=== PATIENT | female | born 1950 | race Caucasian/White ===

== ENCOUNTER → 2017-12-29 | Outpatient (CLI) | payer MEDICARE, OTHER ==
[~2017-12-29] MED LIST: ACYCLOVIR 400400 MG PO; ALLEGRA ALLERG180 MG; ASPIR 8181 MG; ATENOLOL 25 MG25 M1; CALICUM 500+D1 EACH PO; CLARITIN10 MG; COUMADIN 5 MG TA5 M1 PO; EVISTA; HYDROCHLOROTHIA25 M2; LIDOPRIL 2.5%-1 EACH; LISINOPRIL10 MG; MUCINEX TA600 MG/TA2; OXYCODONE HCL 55 MG; PATANOL5 ML; PREDNISONE 20 M20 M1 PO; SINGULAIR 10 MG10 M1; TENORMIN25 MG PO; TESSALON PERLE100 MG; VIACTIV SOFT C1 EACH; VITAMIN D3400 UNIT
== END ==
LOC: M.RAD 06:52
DX: Z12.31 Encounter for screening mammogram for malignant neoplasm of breast (principal)

== ENCOUNTER 2017-12-30 14:46 | Emergency (ER) | payer MEDICARE, OTHER ==
[~2017-12-30] VITALS: Ht 160 cm; Wt 99.8 kg
[~2017-12-30 14:46] MED LIST changes: -CALICUM 500+D1 EACH PO; -COUMADIN 5 MG TA5 M1 PO; -TENORMIN25 MG PO
[2017-12-30] MEDS ORDERED: TENORMIN25 MG PO (15:06)
[2017-12-30] MEDS ORDERED: CALICUM 500+D1 EACH PO (15:07)
[2017-12-30] MEDS ORDERED: COUMADIN 5 MG TA5 M1 PO (15:09)
[2017-12-30 16:04] VITALS: BP 123/58
== END 2017-12-30 16:04 | disposition home or self-care (01) ==
LOC: M.ERS 14:46
DX: S81.811A Laceration without foreign body, right lower leg, initial encounter (principal); I10 Essential (primary) hypertension; Z85.42 Personal history of malignant neoplasm of other parts of uterus; Z88.8 Allergy status to other drugs, medicaments and biological substances; W26.8XXA Contact with other sharp object(s), not elsewhere classified, initial encounter; Y93.89 Activity, other specified; Y92.89 Other specified places as the place of occurrence of the external cause; Y99.8 Other external cause status

== ENCOUNTER → 2019-02-03 | Outpatient (CLI) | payer MEDICARE, OTHER ==
[~2019-02-03] MED LIST changes: +CALICUM 500+D1 EACH PO; +COUMADIN 5 MG TA5 M1 PO; +TENORMIN25 MG PO
== END ==
LOC: M.RAD 08:00
DX: Z12.31 Encounter for screening mammogram for malignant neoplasm of breast (principal)

== ENCOUNTER 2019-03-28 08:17 | Emergency (ER) | payer MEDICARE, OTHER ==
[~2019-03-28] VITALS: Ht 157.5 cm; Wt 101.2 kg
[2019-03-28] MEDS ORDERED: COZAAR 25 MG TA25 M1 PO (08:29)
[2019-03-28] MEDS ORDERED: XARELTO20 MG PO (08:30)
[2019-03-28] MEDS ORDERED: SENNA8.6 MG PO (08:35)
[2019-03-28] MEDS ORDERED: VIACTIV SOFT C1 EACH PO (08:36)
[2019-03-28 09:24] LABS: ABSOLUTE EOSINOPHILS 0.1 thou/uL (0.0-0.7); ABSOLUTE MONOCYTES 0.4 thou/uL (0.0-1.2); ABSOLUTE NEUTROPHILS 4.3 thou/uL (1.6-8.1); BASOPHILS 0.8 %; EOSINOPHILS 2.3 %; HEMOGLOBIN 12.2 gm/dL (12.0-15.0); LYMPHOCYTES 17.6 %; MCH 27.5 pg (26.0-34.0); MCHC 32.9 g/dL (28.0-37.0); MCV 83.6 fL (80.0-100.0); MPV 8.6 fl. (7.2-11.1); NUCLEATED RBCS 0 /100WBC; PLATELET COUNT* 170 thou/uL (150-400); POLYS 73.3 %; RBC 4.43 mil/uL (4.20-5.00); RDW-CV 15.5 % (10.5-14.5); WBC 5.9 thou/uL (4.0-11.0)
[2019-03-28 09:32] LABS: ANION GAP 8 mmol/L (7-16); BUN 11 mg/dL (7-18); CALCIUM 8.1 mg/dL (8.5-10.1); CHLORIDE 108 mmol/L (98-107); CO2 26 mmol/L (21-32); CREATININE 0.7 mg/dL (0.6-1.3); GLUCOSE 160 mg/dL (70-99); POTASSIUM 3.1 mmol/L (3.5-5.1); SODIUM 142 mmol/L (136-145)
[2019-03-28 09:35] LABS: APTT 30.6 Seconds (25.0-31.3); PROTIME 10.7 Seconds (9.20-11.50)
[2019-03-28 09:44] LABS: ALBUMIN 2.7 g/dL (3.4-5.0); ALKALINE PHOSPHATASE 59 U/L (46-116); CK-MB MASS 1.1 ng/mL (<0.5-3.6); LIPASE 115 U/L (73-393); MAGNESIUM 1.6 mg/dL (1.8-2.4); NT-PRO BRAIN NAT PEPTIDE 299 pg/mL (<300); SGOT 12 U/L (15-37); SGPT 16 U/L (30-65); TOTAL BILIRUBIN 0.4 mg/dL (<0.1-1.0); TOTAL PROTEIN 6.1 g/dL (6.4-8.2); TROPONIN-I LEVEL <0.06 ng/mL (<0.06)
[2019-03-28 10:21] VITALS: BP 101/47
--- NOTE | 2019-03-28 17:08 | EKG ---
[place] [address] ELECTROCARDIOGRAM REPORT Name: MJTITO Villa Room: [facility]#: [id number] Admission: 03/28/19 Attend Phys: Discharge: 03/28/19 Date of : 52 Report #: [id number] THIS REPORT FOR: //name// [facility] ED Test Date: 2019-03-28 Test Time: 08:22:33 Pat Name: TITO BARKER Department: Room: Gender: F Education Program Associate: : 1950 Requested By: Tomer Bone Order Number: [id number] MD: Dayron Kunz Measurements Intervals [place] Rate: 155 P: 0 RI: 106 QRS: -54 QRSD: 147 T: 268 QT: 347 QTc: 558 Interpretive Statements Atrial flutter with 2:1 block or SVT Compared to ECG 06/16/2017 04:55:54 Sinus rhythm no longer present Electronically Signed On 03-28-2019 17:08:36 CDT by Dayron Kunz [email or web address] <ELECTRONICALLY SIGNED> By: Dayron Kunz MD, [facility] 03/28/19 3378 08 1 Dayron Kunz MD, [facility] /EPI
--- NOTE | 2019-03-28 17:09 | EKG ---
[place] [address] ELECTROCARDIOGRAM REPORT Name: MJTITO Villa Room: [facility]#: [id number] Admission: 03/28/19 Attend Phys: Discharge: 03/28/19 Date of : 52 Report #: [id number] THIS REPORT FOR: //name// [facility] ED Test Date: 2019-03-28 Test Time: 09:22:26 Pat Name: TITO BARKER Department: Room: Gender: F Instructional Manager: : 1950 Requested By: Tomer Bone Order Number: [id number] MD: Dayron Kunz Measurements Intervals [place] Rate: 105 P: [place]: QRS: 30 QRSD: 94 T: -1 QT: 325 QTc: 430 Interpretive Statements Atrial fibrillation Borderline low voltage, extremity leads Compared to ECG 06/16/2017 04:55:54 Sinus rhythm no longer present Electronically Signed On 03-28-2019 17:09:29 CDT by Dayron Kunz [email or web address] <ELECTRONICALLY SIGNED> By: Dayron Kunz MD, [facility] 03/28/19 1709 1 1 Dayron Kunz MD, FACC /EPI
== END 2019-03-28 10:21 | disposition home or self-care (01) ==
LOC: M.ERS 08:17
PROVIDERS: Family Medicine
DX: I48.2 Chronic atrial fibrillation (principal); I10 Essential (primary) hypertension; Z88.8 Allergy status to other drugs, medicaments and biological substances; Z85.42 Personal history of malignant neoplasm of other parts of uterus

== ENCOUNTER 2019-06-06 17:11 | Emergency (ER) | payer MEDICARE, OTHER ==
[~2019-06-06] VITALS: Ht 165.1 cm; Wt 100.2 kg
[~2019-06-06 17:11] MED LIST changes: +COZAAR 25 MG TA25 M1 PO; +SENNA8.6 MG PO; +VIACTIV SOFT C1 EACH PO; +XARELTO20 MG PO
[2019-06-06 17:43] VITALS: BP 149/71
--- NOTE | 2019-06-07 10:37 | EKG ---
[place] [address] ELECTROCARDIOGRAM REPORT Name: TITO BARKER Room: [facility]#: [id number] Admission: 06/06/19 Attend Phys: Discharge: 06/06/19 Date of : 52 Report #: [id number] THIS REPORT FOR: //name// [facility] ED Test Date: 2019-06-06 Test Time: 17:17:59 Pat Name: TITO BARKER Department: Room: Gender: F Citizenship Teacher: [place] : 1950 Requested By: Tomer Bone Order Number: [id number] MD: Jone Romero Measurements Intervals [place] Rate: 90 P: 38 GA: 160 QRS: -5 QRSD: 103 T: 19 QT: 352 QTc: 431 Interpretive Statements Sinus rhythm Atrial premature complexes Low voltage, extremity and precordial leads T depression, lateral leads, consider ischemia Baseline wander in lead(s) II,III,aVF Compared to ECG 03/28/2019 09:22:26 Atrial premature complex(es) now present Myocardial infarct finding now present ST (T wave) deviation now present Atrial fibrillation no longer present Electronically Signed On 06-07-2019 10:36:40 CDT by Jone Romero [email or web address] <ELECTRONICALLY SIGNED> By: Jone Romero MD, [facility] 06/07/19 1036 1717 171 Jone Romero MD, [facility] /EPI
== END 2019-06-06 17:40 | disposition home or self-care (01) ==
LOC: M.ERS 17:11
DX: F41.9 Anxiety disorder, unspecified (principal); I10 Essential (primary) hypertension; I48.91 Unspecified atrial fibrillation; Z98.890 Other specified postprocedural states; Z85.42 Personal history of malignant neoplasm of other parts of uterus; Z91.048 Other nonmedicinal substance allergy status; Z88.8 Allergy status to other drugs, medicaments and biological substances

== ENCOUNTER → 2020-05-01 | Outpatient (CLI) | payer MEDICARE, OTHER | LOC: M.RAD 09:19 | PROVIDERS: ATTEND Family Medicine | DX: Z12.31 Encounter for screening mammogram for malignant neoplasm of breast (principal); N64.89 Other specified disorders of breast ==

== ENCOUNTER 2020-06-19 18:29 | Emergency (ER) | payer MEDICARE, OTHER ==
[~2020-06-19] VITALS: Ht 157.5 cm; Wt 97.5 kg
[2020-06-19 18:50] LABS: ABSOLUTE BASOPHILS 0.1 thou/uL (0.0-0.2); ABSOLUTE EOSINOPHILS 0.2 thou/uL (0.0-0.7); ABSOLUTE LYMPHOCYTES 2.2 thou/uL (0.8-5.3); ABSOLUTE MONOCYTES 0.7 thou/uL (0.0-1.2); BASOPHILS 0.7 %; HEMATOCRIT 42.6 % (37.0-47.0); HEMOGLOBIN 14.5 gm/dL (12.0-15.0); LYMPHOCYTES 21.7 %; MCH 29.9 pg (26.0-34.0); MCV 88.1 fL (80.0-100.0); MONOCYTES 7.1 %; MPV 9.3 fl. (7.2-11.1); NUCLEATED RBCS 0 /100WBC; PLATELET COUNT* 216 thou/uL (150-400); POLYS 68.5 %; RBC 4.84 mil/uL (4.20-5.00); RDW-CV 15.4 % (10.5-14.5); WBC 10.2 thou/uL (4.0-11.0)
[2020-06-19 18:59] LABS: CALCIUM 8.8 mg/dL (8.5-10.1); CREATININE 0.8 mg/dL (0.6-1.3); POTASSIUM 3.4 mmol/L (3.5-5.1)
[2020-06-19 19:01] LABS: APTT 32.4 Seconds (25.0-31.3); INR 1.2
[2020-06-19 19:13] LABS: ALBUMIN 3.7 g/dL (3.4-5.0); CK-MB MASS 1.5 ng/mL (<0.5-3.6); TOTAL BILIRUBIN 0.2 mg/dL (<0.1-1.0); TOTAL PROTEIN 7.6 g/dL (6.4-8.2)
[2020-06-19 20:29] VITALS: BP 132/74
--- NOTE | 2020-06-20 08:20 | EKG ---
[place] [address] ELECTROCARDIOGRAM REPORT Name: JULIETTE BARKERLIS Allen Room: 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: SINDHU : 1950 Requested By: Tomer Bone Order Number: [id number] MD: Federico Wilson Measurements Intervals [place] Rate: 151 P: 121 AK: 100 QRS: -42 QRSD: 109 T: -72 QT: 353 QTc: 560 Interpretive Statements atrial flutter Abnormal R-wave progression, late transition Repolarization abnormality, prob rate related Baseline wander in lead(s) II,III,aVR,aVF Compared to ECG 06/06/2019 17:17:59 Early repolarization now present Sinus rhythm no longer present Electronically Signed On 06-20-2020 8:20:28 CDT by Federico Wilson [email or web address] <ELECTRONICALLY SIGNED> By: Federico Wilson MD, [facility] 06/20/20819 34 34 Federico Wilson MD, [facility] /EPI
--- NOTE | 2020-06-20 08:21 | EKG ---
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: SINDHU : 1950 Requested By: Tomer Bone Order Number: [id number] MD: Federico Wilson Measurements Intervals [place] Rate: 110 P: [place]: QRS: 10 QRSD: 92 T: 2 QT: 327 QTc: 443 Interpretive Statements Atrial fibrillation Baseline wander in lead(s) V2 Compared to ECG 06/19/2020 18:35:15 atrial flutter no longer present Early repolarization no longer present Electronically Signed On 06-20-2020 8:21:18 CDT by Federico Wilson [email or web address] <ELECTRONICALLY SIGNED> By: Federico Wilson MD, FAC 06/20/20 0821 1843 1843 Federico Wilson MD, [facility] /EPI
== END 2020-06-19 20:33 | disposition home or self-care (01) ==
LOC: M.ERS 18:29
PROVIDERS: Family Medicine
DX: I48.0 Paroxysmal atrial fibrillation (principal); E86.0 Dehydration; I10 Essential (primary) hypertension; Z85.42 Personal history of malignant neoplasm of other parts of uterus; Z91.048 Other nonmedicinal substance allergy status; Z88.8 Allergy status to other drugs, medicaments and biological substances

== ENCOUNTER 2021-02-18 09:46 | Emergency (ER) | payer MEDICARE, OTHER ==
[~2021-02-18] VITALS: Ht 157.5 cm; Wt 99.8 kg
[2021-02-18 11:04] LABS: ABSOLUTE BASOPHILS 0.1 thou/uL (0.0-0.2); ABSOLUTE EOSINOPHILS 0.2 thou/uL (0.0-0.7); ABSOLUTE LYMPHOCYTES 1.4 thou/uL (0.8-5.3); ABSOLUTE MONOCYTES 0.6 thou/uL (0.0-1.2); ABSOLUTE NEUTROPHILS 6.4 thou/uL (1.6-8.1); BASOPHILS 0.8 %; EOSINOPHILS 1.8 %; HEMATOCRIT 42.5 % (37.0-47.0); HEMOGLOBIN 13.9 gm/dL (12.0-15.0); LYMPHOCYTES 16.7 %; MCH 28.6 pg (26.0-34.0); MCHC 32.8 g/dL (28.0-37.0); MONOCYTES 7.2 %; MPV 8.8 fl. (7.2-11.1); NUCLEATED RBCS 0 /100WBC; PLATELET COUNT* 208 thou/uL (150-400); POLYS 73.5 %; RBC 4.88 mil/uL (4.20-5.00); RDW-CV 14.4 % (10.5-14.5); WBC 8.7 thou/uL (4.0-11.0)
[2021-02-18 11:16] LABS: APTT 79.4 Seconds (25.0-31.3); INR 1.1; PROTIME 11.3 Seconds (9.20-11.50)
[2021-02-18 11:27] LABS: CALCIUM 9.9 mg/dL (8.5-10.1); CREATININE 0.6 mg/dL (0.6-1.3); POTASSIUM 3.5 mmol/L (3.5-5.1)
[2021-02-18 11:40] LABS: ALBUMIN 3.5 g/dL (3.4-5.0); CK-MB MASS 0.8 ng/mL (<0.5-3.6); MAGNESIUM 2.1 mg/dL (1.8-2.4); TOTAL BILIRUBIN 0.6 mg/dL (<0.1-1.0); TOTAL PROTEIN 7.6 g/dL (6.4-8.2)
[2021-02-18 11:57] VITALS: BP 111/73
--- NOTE | 2021-02-18 16:30 | EKG ---
[place] [address] ELECTROCARDIOGRAM REPORT Name: JULIETTE BARKERLIS Allen Room: 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: SINDHU : 1950 Requested By: Tomer Bone Order Number: [id number] MD: Federico Wilson Measurements Intervals [place] Rate: 151 P: 105 IN: 90 QRS: -49 QRSD: 107 T: -81 QT: 342 QTc: 543 Interpretive Statements atrial flutter nonspecific t wave changes Prolonged QT interval Compared to ECG 06/19/2020 18:43:37 Prolonged QT interval now present Atrial fibrillation no longer present Electronically Signed On 02-18-2021 16:30:49 CDT by Federico Wilson [email or web address] <ELECTRONICALLY SIGNED> By: Federico Wilson MD, [facility] 02/18/21 1630 1033 1033 Federico Wilson MD, [facility] /EPI
--- NOTE | 2021-02-18 16:32 | EKG ---
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
== END 2021-02-18 12:00 | disposition home or self-care (01) ==
LOC: M.ERS 09:46
PROVIDERS: Family Medicine
DX: R00.2 Palpitations (principal); I10 Essential (primary) hypertension; I48.91 Unspecified atrial fibrillation; Z88.8 Allergy status to other drugs, medicaments and biological substances; Z85.42 Personal history of malignant neoplasm of other parts of uterus

== ENCOUNTER → 2021-03-11 | Outpatient (CLI) | payer MEDICARE, OTHER | LOC: M.RAD 14:30 | PROVIDERS: ATTEND Family Medicine | DX: M85.88 Other specified disorders of bone density and structure, other site (principal); M81.0 Age-related osteoporosis without current pathological fracture; Z78.0 Asymptomatic menopausal state ==

== ENCOUNTER → 2021-06-10 | Outpatient (CLI) | payer MEDICARE, OTHER ==
[~2021-06-10] MED LIST changes: -EVISTA; +EVISTA60 MG PO; +LIPITOR 20 MG T20 M1 PO
== END ==
LOC: M.RAD 07:03
PROVIDERS: ATTEND Family Medicine
DX: Z12.31 Encounter for screening mammogram for malignant neoplasm of breast (principal)

== ENCOUNTER 2021-06-12 05:24 | Inpatient (IN) | payer MEDICARE, OTHER ==
[~2021-06-12] VITALS: Ht 157.5 cm; Wt 102.1 kg
[~2021-06-12 05:24] MED LIST changes: -LIPITOR 20 MG T20 M1 PO
[2021-06-12 05:32] VITALS: BP 148/94
[2021-06-12 06:04] LABS: ABSOLUTE BASOPHILS 0.1 thou/uL (0.0-0.2); ABSOLUTE EOSINOPHILS 0.2 thou/uL (0.0-0.7); ABSOLUTE LYMPHOCYTES 1.3 thou/uL (0.8-5.3); ABSOLUTE MONOCYTES 0.5 thou/uL (0.0-1.2); ABSOLUTE NEUTROPHILS 4.1 thou/uL (1.6-8.1); BASOPHILS 1.4 %; EOSINOPHILS 2.5 %; HEMATOCRIT 40.4 % (37.0-47.0); HEMOGLOBIN 13.2 gm/dL (12.0-15.0); LYMPHOCYTES 21.7 %; MCH 28.7 pg (26.0-34.0); MCHC 32.8 g/dL (28.0-37.0); MCV 87.6 fL (80.0-100.0); MONOCYTES 7.8 %; MPV 8.6 fl. (7.2-11.1); NUCLEATED RBCS 0 /100WBC; PLATELET COUNT* 173 thou/uL (150-400); POLYS 66.6 %; RBC 4.62 mil/uL (4.20-5.00); RDW-CV 15.1 % (10.5-14.5); WBC 6.2 thou/uL (4.0-11.0)
[2021-06-12] MEDS ORDERED: LIPITOR 20 MG T20 M1 PO (06:09)
[2021-06-12 06:15] LABS: CALCIUM 7.3 mg/dL (8.5-10.1); CREATININE 0.5 mg/dL (0.6-1.3); POTASSIUM 3.1 mmol/L (3.5-5.1)
[2021-06-12 06:26] LABS: TOTAL BILIRUBIN 0.3 mg/dL (<0.1-1.0)
--- NOTE | 2021-06-12 07:01 | NUR ---
LEFT PORT ACCESSED WITH 1 INCH NEEDLE IN STERILE FIELD, TOLERATED WELL.
--- NOTE | 2021-06-12 10:20 | EKG ---
[place] [address] ELECTROCARDIOGRAM REPORT Name: TITO BARKER Room: [place] [address] ADM IN [facility].#: [id number] Admission: 06/12/21 Attend Phys: Delmar Preez Discharge: Date of : 52 Date of Service: 06/12/21 0534 Report #: [id number] THIS REPORT FOR: //name// [facility] ED Test Date: 2021-06-12 Test Time: 05:34:08 Pat Name: TITO BARKER Department: Room: [facility] Gender: F Area Captain: [place] : 1950 Requested By: Maxine Pearce Order Number: [id number] MD: Federico Wilson Measurements Intervals [place] Rate: 143 P: [place]: QRS: -2 QRSD: 86 T: -11 QT: 309 QTc: 477 Interpretive Statements Atrial fibrillation Ventricular premature complex Anterior infarct, old Repolarization abnormality, prob rate related Baseline wander in lead(s) II,aVR Compared to ECG 02/18/2021 11:12:18 Ventricular premature complex(es) now present Early repolarization now present Myocardial infarct finding still present rate has increased Electronically Signed On 06-12-2021 10:20:25 CDT by Federico Wilson [email or web address] <ELECTRONICALLY SIGNED> By: Federico Wilson MD, [facility] 06/12/21 1020 0534 0534 Federico Wilson MD, [facility] /EPI
--- NOTE | 2021-06-12 10:21 | EKG ---
[place] [address] ELECTROCARDIOGRAM REPORT Name: TITO BARKER Room: [place] [address] ADM IN [facility]#: [id number] Admission: 06/12/21 Attend Phys: Delmar Perez Discharge: Date of : 52 Date of Service: 06/12/21 0637 Report #: [id number] THIS REPORT FOR: //name// [facility] ED Test Date: 2021-06-12 Test Time: 06:37:13 Pat Name: TITO BARKER Department: Room: [facility] Gender: F Accounts Payable Lead: [place] : 1950 Requested By: Maxine Pearce Order Number: [id number] MD: Federico Wilson Measurements Intervals [place] Rate: 95 P: [place]: QRS: -29 QRSD: 118 T: 13 QT: 343 QTc: 431 Interpretive Statements Atrial flutter with predominant 4:1 AV block Probable inferior infarct, age indeterminate Consider anterior infarct Baseline wander in lead(s) III Compared to ECG 06/12/2021 05:34:08 Atrial fibrillation no longer present Ventricular premature complex(es) no longer present Myocardial infarct finding still present Electronically Signed On 06-12-2021 10:21:30 CDT by Federico Wilson [email or web address] <ELECTRONICALLY SIGNED> By: Federico Wilson MD, [facility] 06/12/21 1021 0637 Federico Wilson MD, [facility] /EPI
[2021-06-12 13:47] VITALS: BP 154/75
--- NOTE | 2021-06-12 14:09 | 2DMMODE ---
[place] [address] 2 D/M-MODE ECHOCARDIOGRAM Name: TITO BARKER Allen Room: [place] [address] ADM IN [facility]#: [id number] Admission: 06/12/21 Attend Phys: Delmar Perez Discharge: Date of : 52 Date of Service: 06/12/21 1409 Report #: [id number] THIS REPORT FOR: cc: Dayron Mancera John E. DO Blick,Federico Molina MD [facility] ~ APPROVED REPORT Study performed: 06/12/2021 13:20:37 EXAM: Comprehensive 2D, Doppler, and color-flow Echocardiogram Patient Location: In-Patient Room #: er Status: routine BSA: 2.01 HR: 73 bpm BP: 99/62 mmHg Rhythm: NSR Other Information Study Quality: Good Indications Atrial Fibrillation 2D Dimensions IVSd: 11.68 (7-11mm) LVOT Diam: 19.60 (18-24mm) LVDd: 39.73 mm PWd: 7.80 (7-11mm) Ascending Ao: 37.15 (22-36mm) LVDs: 21.73 (25-40mm) Aortic Root: 31.82 mm Volumes Left Atrial Volume (Systole) LA ESV Index: 28.10 mL/m2 Aortic Valve AoV Peak Paul.: 1.51 m/s AO Peak Gr.: 9.11 mmHg LVOT Max P.22 mmHg AO Mean Gr.: 5.29 mmHg LVOT Mean P.21 mmHg LVOT Max V: 1.25 m/s AO V2 VTI: 32.11 cm LVOT Mean V: 0.83 m/s ANNE (VTI): 2.62 cm2 LVOT V1 VTI: 27.92 [place] [address] 2 D/M-MODE ECHOCARDIOGRAM Name: TITO BARKER Room: [address] IN [facility]#: [id number] Admission: 06/12/21 Attend Phys: Delmar Perez Discharge: Date of : 52 Date of Service: 06/12/21 1409 Report #: [id number] Mitral Valve E/A Ratio: 0.97 MV Decel. Time: 267.28 ms MV E Max Paul.: 0.97 m/s MV PHT: 77.51 ms MVA (PHT): 2.84 cm2 TDI E/Lateral E': 8.08 E/Medial E': 8.82 Medial E' Paul.: 0.11 m/s Lateral E' Paul.: 0.12 m/s Pulmonary Valve PV Peak Paul.: 0.99 m/s PV Peak Gr.: 3.92 mmHg Tricuspid Valve RAP Estimate: 5.00 mmHg TR Peak Gr.: 23.50 mmHg RVSP: 28.00 mmHg PA Pressure: 28.00 mmHg Left Ventricle The left ventricle is normal size. There is normal LV segmental wall motion. There is normal left ventricular wall thickness. Left ventricular systolic function is normal. The left ventricular ejection fraction is within the normal range. LVEF is 55-60%. The left ventricular diastolic function is normal. Right Ventricle The right ventricle is normal size. The right ventricular systolic function is normal. Atria The left atrium size is normal. The right atrium size is normal. Aortic Valve Mild aortic valve sclerosis. No aortic regurgitation is present. There is no aortic valvular stenosis. Mitral Valve The mitral valve is normal in structure. Trace mitral regurgitation. No evidence of mitral valve stenosis. Tricuspid Valve The tricuspid valve is normal in structure. Mild tricuspid regurgitation. [place] [address] 2 D/M-MODE ECHOCARDIOGRAM Name: TITO BARKER Room: [address] IN [facility]#: [id number] Admission: 06/12/21 Attend Phys: Delmar Perez Discharge: Date of : 52 Date of Service: 06/12/21 1409 Report #: [id number] Pulmonic Valve The pulmonary valve is normal in structure. There is no pulmonic valvular regurgitation. Great Vessels The aortic root is normal in size. IVC is normal in size and collapses >50% with inspiration. Pericardium There is no pericardial effusion. <Conclusion> LVEF is 55-60%. Mild aortic valve sclerosis. Trace mitral regurgitation. <ELECTRONICALLY SIGNED> By: Federico Wilson MD, FACC 06/12/21 1409 1409 1409 Federico Wilson MD, FACC /INF
[2021-06-12 15:16] VITALS: BP 154/75
[2021-06-12 15:42] VITALS: BP 147/75
--- NOTE | 2021-06-12 15:56 | EKG ---
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: [place] : 1950 Requested By: Delmar Perez Order Number: [id number] Reading MD: Federico Wilson Measurements Intervals [place] Rate: 86 P: [place]: QRS: -22 QRSD: 99 T: 9 QT: 367 QTc: 439 Interpretive Statements Atrial flutter Borderline left axis deviation Anteroseptal infarct, old Compared to ECG 06/12/2021 06:37:13 Myocardial infarct finding still present Electronically Signed On 06-12-2021 15:56:11 CDT by Federico Wilson [email or web address] <ELECTRONICALLY SIGNED> By: Federico Wilson MD, [facility] 06/12/21 1556 0638 0638 Federico Wilson MD, [facility] /EPI
--- NOTE | 2021-06-12 19:22 | NUR ---
PT ADMITED FROM ER AT 1600, A/OX4 PLEASANT AND COOPERATIVE. PT ON ROOM AIR, NSR ON TELE. PT DENIES HAVING C/O PAIN OR DISCOMFORT AT THIS TIME, UP WITH SBA BECAUSE OF IV FLUIDS.
[2021-06-12 20:00] VITALS: BP 164/73
[2021-06-13] VITALS: BP 145/64
[2021-06-13 04:00] VITALS: BP 163/81
[2021-06-13 04:23] LABS: CALCIUM 8.6 mg/dL (8.5-10.1); CREATININE 0.6 mg/dL (0.6-1.3); MAGNESIUM 1.9 mg/dL (1.8-2.4); PHOSPHORUS* 2.9 mg/dL (2.5-4.9); POTASSIUM 3.3 mmol/L (3.5-5.1)
--- NOTE | 2021-06-13 06:02 | NUR ---
PATIENT SLEPT PART OF THE NIGHT. PATIENT HAS REMAINED SR ALL NIGHT. IV FLUIDS CONTINUE TO INFUSE AT 100 ML/HR. DR NAVARRETE WAS PAGED ABOUT RESTARTING SOME OF HER HOME MEDS. WILL CONTINUE TO MONITOR.
--- NOTE | 2021-06-13 11:01 | CON ---
[address] [address] CONSULTATION Name: TITO BARKER Allen Room: [address] IN [place].#: [id number] Admission: 06/12/21 Attend Phys: Dannie Dubon Discharge: Date of : 52 Report #: [id number] THIS REPORT FOR: cc: Dayron Mancera John E. DO Blick, David R. MD [facility] ~ cc: Dayron Mancera DO DATE OF CONSULTATION: 06/12/2021 CARDIOLOGY CONSULTATION HISTORY OF PRESENT ILLNESS: The patient is a 70-year-old single white female whom I was asked to see in the Emergency Room today after she was noted to be in atrial fibrillation. The patient has a long and extensive past medical history. Unfortunately, most of her old records not here of [place]. She was diagnosed with uterine cancer about 6 years ago. She went to and had a hysterectomy followed by chemotherapy and radiation therapy. She had returned to for hernia surgery. After her surgery, she went into atrial fibrillation. She has been followed by caterer helper at since that time. She initially was placed on warfarin and was switched to Xarelto. She was placed on atenolol. The last several years, she does have episodes of rapid irregular heartbeat about once or twice a year, usually when it is hot during the summer. She apparently was admitted here to [place] this past year with a brief episode of atrial fibrillation. She has never required cardioversion or antiarrhythmic therapy. She was doing well until this morning. She woke up at 4:00 a.m. and going to the bathroom, she felt her heart beating fast and irregular. She felt somewhat short of breath. Denied lightheadedness, chest pain. Her daughter brought her to the Emergency Room, she was found to be in atrial fibrillation. She was started on intravenous diltiazem and Cardiology consultation was requested. She denies history of exertional chest tightness, dyspnea on exertion and edema. She has had no previous stress test to her heart. She denies a heart murmur. She has had no syncope. PAST MEDICAL HISTORY: She has had Mejia's palsy. She has a history of hypertension, hyperlipidemia. CURRENT MEDICATIONS: Includes atenolol, Lipitor, losartan, Xarelto. ALLERGIES: SHE HAS A PREVIOUS INTOLERANCE TO PREDNISONE. FAMILY HISTORY: Her mother had a pacemaker. SOCIAL HISTORY: She is , lives here in [place]. No smoking[place] [address] CONSULTATION Name: TITO BARKER Room: [address]#: [id number] Admission: 06/12/21 Attend Phys: Dannie Dubon Discharge: Date of : 52 Report #: [id number] REVIEW OF SYSTEMS: She is overweight being 5 feet 2, 225 pounds. No history of stroke. She has allergies. No liver disease. No kidney disease. She has arthritis in her knees. She wears glasses. No chronic skin condition. No psychiatric illness. PHYSICAL EXAMINATION: GENERAL: Revealed a middle-aged female. She appeared in no distress. VITAL SIGNS: Her blood pressure was 130/90, pulse was initially 140. She was afebrile. HEENT: She was anicteric. Conjunctivae pink. Mucous membranes moist. NECK: Veins not appear distended. No carotid bruits. CHEST: Clear to auscultation. NECK: Supple. HEART: Irregular, tachycardia. No significant murmur. ABDOMEN: Obese, soft, nontender. EXTREMITIES: Had no pitting edema. Dorsalis pedis pulse 1+ bilaterally. SKIN: Cool and dry. NEUROLOGIC: Nonfocal. LYMPHATIC: No adenopathy. MUSCULOSKELETAL: No joint effusion. LABORATORY DATA: ECG showed atrial fibrillation with rapid ventricular response rate. There was anteroseptal Q-waves noted. Her workup in the Emergency Room last night, she had a portable chest x-ray that showed normal heart size and clear lung ford. Her lab work, potassium is 3.1, creatinine 0.5, albumin 3.0. Troponin 0.06. Her white blood cell count 6.2, hemoglobin 13.2. Her COVID antigen stat test was negative. IMPRESSION AND RECOMMENDATIONS: 1. Atrial fibrillation. I would continue Xarelto. I would recommend switching from atenolol to sotalol, if she fails to consider cardioversion. 2. Hypertension. The patient is on a beta kavita and ARB. 3. Hyperlipidemia. The patient is on a statin drug. 4. History of uterine cancer. 5. Obesity. <ELECTRONICALLY SIGNED> By: Federico Wilson MD, [facility] 06/13/21 1101 0834 0854David Jesse Wilson MD, FAC /nt
[2021-06-13 12:00] VITALS: BP 167/79
--- NOTE | 2021-06-13 12:43 | NUR ---
Pt is A&O. Resides at home. Independent. No DME. No hx of HH or SNF. Goal is home at dc, no needs anticipated. Anticipate dc tomorrow. Cardiology following, ?need for cardioversion.
[2021-06-13 16:00] VITALS: BP 189/88
--- NOTE | 2021-06-13 18:36 | NUR ---
ASSUMED CARE OF PT AT APPROX 0930. REPORT RECEIVED FROM JOAQUIN IYER, PT DENIES ANY PAIN OR SHORTNESS OF BREATH. 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 ON RA SAT UPPER 90'S. PT UP AD MAXINE IN ROOM. PT GOAL IS SOTALOL LOADING AND DISCHARGE PLANNING TO HOME TOMORROW 06/14. AM ASSESSMENT CHARTED. MEDICATIONS PER DEC. PT REPOSITIONS SELF. HOURLY ROUNDING OBSERVED. BED IN LOW POSITION. CALL LIGHT WITHIN REACH. WILL CONTINUE PLAN OF CARE.
[2021-06-13 19:45] VITALS: BP 157/85
[2021-06-14] VITALS: BP 179/80
[2021-06-14 04:00] VITALS: BP 166/84
--- NOTE | 2021-06-14 05:33 | NUR ---
PT A&O X 4. MEDS GIVEN ORDERED. SR ON THE MONITOR. UP INDEPENDENTLY IN ROOM. NO C/O PAIN. SLEPT MOST OF THE NIGHT. CALL LIGHT WITHIN RECH. WILL CONTINUE TO MONITOR.
[2021-06-14 08:20] VITALS: BP 168/81
[2021-06-14] MEDS ORDERED: SORINE 80 MG TA80 M1 PO (09:32)
--- NOTE | 2021-06-14 10:00 | EKG ---
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: [id number] : 1950 Requested By: Federico Wilson Order Number: [id number] Reading MD: Federico Wilson Measurements Intervals [place] Rate: 82 P: 39 [place]: 176 QRS: -1 QRSD: 79 T: -3 QT: 389 QTc: 455 Interpretive Statements Sinus rhythm septal infarct, old Borderline T abnormalities, inferior leads Compared to ECG 06/12/2021 06:38:38 T-wave abnormality now present Atrial flutter no longer present Myocardial infarct finding still present Electronically Signed On 06-14-2021 10:00:06 CDT by Federico Wilson [email or web address] <ELECTRONICALLY SIGNED> By: Federico Wilson MD, FACC 06/14/21 1000 1 1 Federico Wilson MD, FAC /EPI
[2021-06-14 11:01] VITALS: BP 168/81
[2021-06-14] MEDS ORDERED: COZAAR 25 MG TA25 M1 PO (11:10)
--- NOTE | 2021-06-14 11:34 | NUR ---
ORDERS NOTED FOR OKAY TO D/C THIS SHIFT PER AND - LEFT CHEST PORT PACKED WITH HEPARIN AND DEACCESSED ORDERED PRIOR TO D/C WITH GAUZES/TRANSPARENT DRESSING APPLIED- SR. MEDIA MANAGER D/C'D- D/C EDUCATION/TEACHING/NEEDED FOLLOW UP'S COMMUNICATED WITH VERBAL UNDERSTANDING NOTED PER PT- WRITTEN EDUCATION PROVIDED TO PT ALONG WITH SCRIPTS PRIOR TO D/C, ALL QUESTIONS AND CONCERNS ADDRESSED PRIOR TO D/C- BELONGINGS PACKED AND ACCOUNTED FOR PER PT- PT ESCORTED PER TECH VIA W/C WITH BELONGINGS; DAUGHTER AT SIDE TO VEHICLE- NO PROBLMES TO NOTE AT TIME OF D/C
--- NOTE | 2021-06-14 14:50 | NUR ---
Pt discharged to home with a no needs LOC
== END 2021-06-14 11:42 | disposition home or self-care (01) | DRG 309 ==
LOC: M.ERS 05:24 → M.2W 08:34 → M.TBA-ER 08:34 → M.2W 15:55
PROVIDERS: Personal Emergency Response Attendant; ADMIT Internal Medicine; ATTEND Internal Medicine
DX: I48.0 Paroxysmal atrial fibrillation (principal); Z68.41 Body mass index [BMI] 40.0-44.9, adult; I50.32 Chronic diastolic (congestive) heart failure; D68.59 Other primary thrombophilia; E66.9 Obesity, unspecified; Z20.822 Contact with and (suspected) exposure to COVID-19; I48.92 Unspecified atrial flutter; E78.5 Hyperlipidemia, unspecified; I11.0 Hypertensive heart disease with heart failure; Z85.54 Personal history of malignant neoplasm of ureter; Z79.899 Other long term (current) drug therapy; Z88.8 Allergy status to other drugs, medicaments and biological substances; Z91.048 Other nonmedicinal substance allergy status; Z90.710 Acquired absence of both cervix and uterus; Z92.21 Personal history of antineoplastic chemotherapy; Z92.3 Personal history of irradiation; Z79.01 Long term (current) use of anticoagulants; Z82.49 Family history of ischemic heart disease and other diseases of the circulatory system; Z83.3 Family history of diabetes mellitus

== ENCOUNTER 2021-07-10 06:56 | Emergency (ER) | payer MEDICARE, OTHER ==
[~2021-07-10] VITALS: Ht 157.5 cm; Wt 102.0 kg
[~2021-07-10 06:56] MED LIST changes: +LIPITOR 20 MG T20 M1 PO; +SORINE 80 MG TA80 M1 PO
[2021-07-10] MEDS ORDERED: DICLOFENAC SOD100 G1 TOP (07:14)
[2021-07-10 07:43] VITALS: BP 173/93
--- NOTE | 2021-07-10 12:16 | EKG ---
[place] [address] ELECTROCARDIOGRAM REPORT Name: TITO BARKER Room: [facility]#: [id number] Admission: 07/10/21 Attend Phys: Discharge: 07/10/21 Date of : 52 Date of Service: 07/10/21 0658 Report #: [id number] THIS REPORT FOR: //name// [facility] ED Test Date: 2021-07-10 Test Time: 06:58:04 Pat Name: TITO BARKER Department: Room: Gender: F Search Coordinator: DERIAN : 1950 Requested By: Tomer Bone Order Number: [id number] MD: Federico Wilson Measurements Intervals [place] Rate: 96 P: 68 [place]: 166 QRS: -8 QRSD: 90 T: 8 QT: 350 QTc: 443 Interpretive Statements Sinus rhythm Borderline low voltage, extremity leads Anteroseptal infarct, old Baseline wander in lead(s) II,III,aVR,aVF Compared to ECG 06/14/2021 08:12:55 Myocardial infarct finding still present Electronically Signed On 07-10-2021 12:16:12 CDT by Federico Wilson [email or web address] <ELECTRONICALLY SIGNED> By: Federico Wilson MD, [facility] 07/10/21 1216 0658 0658 Federico Wilson MD, [facility] /EPI
== END 2021-07-10 07:43 | disposition home or self-care (01) ==
LOC: M.ERS 06:56
DX: R00.2 Palpitations (principal); I10 Essential (primary) hypertension; Z79.899 Other long term (current) drug therapy; Z91.048 Other nonmedicinal substance allergy status; Z88.8 Allergy status to other drugs, medicaments and biological substances